=== PATIENT | male | born 1945 | race Caucasian/White ===

== ENCOUNTER 2019-05-15 20:13 | Inpatient (IN) | payer BC ==
[~2019-05-15] VITALS: Ht 170.2 cm; Wt 106.1 kg
[2019-05-15 20:20] VITALS: Ht 170.2 cm; Wt 106.1 kg
--- NOTE | 2019-05-15 20:36 | NUR ---
PT PRESENTS TO ED WITH C/O MIDSTERNAL CHEST PAIN THAT RADIATES TO BOTH ARMS. PT STATES THAT IT STARTED THIS AFTERNOON AND WOKE HIM UP FROM A NAP. PT STATES THAT THE PAIN IS INTERMITTENT AND FEELS DULL. PT HAS PAIN UPON PALPATION OF MIDSTERNUM PT STATES IT IS THE SAME DULL PAIN HE ALREADY FEELS. PT STATES THAT HE HAS ASSOCIATED SOB WITH CHEST PAIN ALONG WITH BACK PAIN HOWEVER HE STATES THAT PAIN IS CHRONIC. PT IS AXO X 4. PT SPEAKING IN CLEAR AND FULL SENTENCES. NAD AT THIS TIME. PT SKIN WNL. PT IS NOT DIAPHORETIC. MD MARIN ALREADY PERFOMED MSE. PT CONNECTED TO FULL CM AND PULSE OX MONITORS. NAD
[2019-05-15 20:42] LABS: BASOPHIL % 0.5 % (0-2); PLATELET COUNT 299 x10^3mcL (130-400); RED CELL DISTRIBUTION WIDTH 13.1 % (11.5-14.5)
[2019-05-15 20:50] LABS: CALCIUM 8.8 mg/dL (8.5-10.1); CARBON DIOXIDE 27.8 mmol/L (21-32); CHLORIDE SERUM 103 mmol/L (98-107); GLUCOSE SERUM 178 mg/dL (74-106); POTASSIUM SERUM 3.8 mmol/L (3.5-5.1); SODIUM SERUM 141 mmol/L (136-145)
[2019-05-15 20:55] LABS: ALBUMIN 4.1 g/dL (3.4-5.0); ALKALINE PHOSPHATASE 98 U/L (46-116); ALT/SGPT 39 U/L (16-63); AST/SGOT 20 U/L (15-37); BILIRUBIN TOTAL 0.42 mg/dL (0.20-1.00)
[2019-05-15 21:02] LABS: TOTAL PROTEIN, SERUM 8.4 g/dL (6.4-8.2)
[2019-05-15] MEDS ORDERED: METOPROLOL SUC100 M2 PO (21:11)
[2019-05-15] MEDS ORDERED: AMLODIPINE BESYL5 M2 PO (21:12)
--- NOTE | 2019-05-15 22:15 | NUR ---
PT IN [facility] IN POSITION OF COMFORT. FAMILY REMAINS AT BEDSIDE. NO DISTRESS. PT REMAINS CONNECTED TO FULL CM.
--- NOTE | 2019-05-15 22:46 | NUR ---
REPORT GIVEN TO LINO MAGALLANES TO ASSUME CARE
[2019-05-15 23:19] VITALS: BP 196/88
--- NOTE | 2019-05-15 23:29 | NUR ---
RECEIVED PT FROM ER, PT ADMIT FOR CHEST PAIN, PT IS A/OX 4, VERBAL RESPONSIVE LUNG SOUND CLEAR BILATERAL, NO COUGH, NO SOB, PT IS ON TELE 12. NSR, DENY ANY CHEST PAIN AT THIS MOMENT, PT STATE HE HAS CHEST PAIN THIS MORNING PAIN WAS COMING AND GO. PRESSURE PAIN. RIGHT ARM NUMBNESS, BOWEL SOUND PRESENT ALL 4 QUADRANTS, NO DISTENTION, NO TENDER. PEDAL PULSE PRESENT BOTH FEET, NO EDEMA, IV AT RIGHT HAND, NO LEAKING, NO INFILTRAITON. ALL ADLS ASSIST, ALL NEED MET, CALL LIGHT IN REACH, WILL CONTINUE TO MONITOR.
--- NOTE | 2019-05-15 23:42 | NUR ---
PATIENT STATES HE FEELS ANXIOUS BUT DENIES CHEST PAIN. HIS BP IS ELEVATED, SEE FLOWCHART. PATIENT GIVEN ATIVAN PO PER EMAR AT THIS TIME.
[2019-05-15 23:57] LABS: CHOLESTEROL/HDL RATIO 4.9
[2019-05-16] VITALS (8 sets, daily range): BP systolic 117–152; BP diastolic 56–82
--- NOTE | 2019-05-16 00:22 | NUR ---
BLOOD PRESSURE REDUCED TO 152/73. PATIENT STILL DENIES CHEST PAIN.
--- NOTE | 2019-05-16 06:33 | NUR ---
NO FURTHER SIGNIFICNAT EVENTS THIS SHIFT. PATIENT IS RESTING IN BED. NO SOB. DENIES CHEST PAIN. IV SALINE LOCKED AND PATENT. CALL LIGHT WITHIN REACH. WILL ENDORSE CARE TO DAYSHIFT NURSE.
--- NOTE | 2019-05-16 09:44 | NUR ---
Recieved report from night nurse at 0730. Patient does not report any chest pain at this time. lung sounds clear to auscultation. Heart rate regular. ECG showing sinus rhythm.
[2019-05-16 11:59] LABS: BASOPHIL % 0.6 % (0-2); PLATELET COUNT 278 x10^3mcL (130-400); RED CELL DISTRIBUTION WIDTH 12.9 % (11.5-14.5)
[2019-05-16 12:14] LABS: CALCIUM 8.2 mg/dL (8.5-10.1); CARBON DIOXIDE 29.3 mmol/L (21-32); CHLORIDE SERUM 102 mmol/L (98-107); GLUCOSE SERUM 192 mg/dL (74-106); POTASSIUM SERUM 3.9 mmol/L (3.5-5.1); SODIUM SERUM 137 mmol/L (136-145)
--- NOTE | 2019-05-16 12:58 | NUR ---
RECEIVED CALL FROM LAB WITH TROPONIN LEVEL OF [phone]. CALL PLACED FOR DR TURNER TO NOTIFY.
--- NOTE | 2019-05-16 14:08 | NUR ---
AT 1305 - RECEIVED CALL FROM DR TOMLINSON. MADE AWARE OF TROPONIN LEVEL. RECEIVED ORDERS: - COMMENCE HEPARIN DRIP. - CARDIOLOGY CONSULT WITH DR SALOMON - ECHCARDIOGRAM AT 1330 - SPOKE WITH PATIENT ABOUT PLANNNED CARE. AT 1345 - ECHOCARDIOGRAM IN PROGRESS. BLOOD HAS BEEN DRAWN FOR PT/PTT. SPOKE WITH PATIENT'S FAMILY, WHO IS AT BEDSIDE. AT 1350 -SEEN BY DR TOMLINSON. SPOKE WITH PATIENT AND FAMILY ABOUT PATIENT HAVING "A HEART ATTACK" AT THIS TIME. PATIENT MAY NEED CARDIAC CATH AND POSSIBLE TRANSFER TO HIGHER LEVEL OF CARE. CARIOLOGIST WILL SEE PATIENT. KEEP O2 SAT ABOVE 92%. USE O2 IF NEEDED. AT 1400 - PATIENT PLACED ON CONTINUOUS O2 SAT. CURRENTLY 96% ON ROOM AIR. MONITOR SHOWING SINUS RHYTHM; RATE 70. NO ECTOPIES. DENIES ANY CHEST PAIN. AWAITING PT/PTT RESULTS FOR HEPARIN INFUSION COMMENCEMENT.
--- NOTE | 2019-05-16 14:44 | NUR ---
ECHOCARDIOGRAM COMPLETED.
--- NOTE | 2019-05-16 15:00 | NUR ---
CALLED TO THE PULMONOLOGY PHYSICIAN AND INFORMED ABOUT TRANSFER PATIENT TO HIGHER LEVEL OF CARE FOR HEART CATH AND TO MAKE ARRANGEMENT.
--- NOTE | 2019-05-16 15:30 | NUR ---
AT 1430 - NITRO PATCH APPLIED TO LEFT CHEST PER EMAR. PT/PTT RESULTS NOW AVAILVE. CALLED PHARMACY. AT 1440 - DR SALOMON AT BEDSIDE. HE SPOKE TO PATIENT AND FAMILY ABOUT PLAN OF TREATMENT INCLUDING CARDIAC CATH AND TRANSFER TO EITHER [facility] OR [facility]. PLAN FOR TRANSFER TOMORROW. AT 1450 - COMMENCED HEPARIN INFUSION AFTER INITAL BOLUS DOSE OF 6400 UNITS HEPARIN. INFUSION COMMENCED AT 1300 UNITS/HR. PTT ORDERED FOR 2100 AT 1455 - NOTED SHORT RUN OF [address] SALOMON AWARE. PT DENIES ANY CHEST PAIN. O2 SAT REMAINS AT 95%. FAMILY AT BEDSIDE.
--- NOTE | 2019-05-16 15:56 | NUR ---
PATIENT SITTING IN CHAIR. APPEARS COMFORTABLE. NO C/O CHEST PAIN. HEPARIN INFUSION REMAINS AT 1300 UNITS/HR. LAB AT BEDSIDE DRAWING NEXT TROPONIN LEVEL.
--- NOTE | 2019-05-16 16:44 | NUR ---
LAST TROPONIN LEVEL 8.549. THIS IS A DOWNWARD TREND. NOT REPORTED - PATIENT IS ALREADY ON HEPARIN INFUSION AND HAS BEEN SEEN BY CYLINDER HANDLER. TREATMENT PLAN IN PROGRESS.
--- NOTE | 2019-05-16 17:00 | NUR ---
[employer] FIELD SUPERVISOR DANK CALLED AND STATED HAVE BED FOR THE PATIENT TO [facility] [email or web address] AND ACCEPTING DOCTOR AND TEL.NO TO GIVE REPORT [phone].
--- NOTE | 2019-05-16 18:21 | NUR ---
PATIENT AWAKE, ALERT AND ORIENTED. MONITOR SHOWING SINUS RHYTHM; RATE 65. NO ECTOPIES NOTED. O2 SAT 96% ON ROOM AIR. DENIES ANY PAIN. HEPARIN INFUSION REMAINS AT 1300 UNITS/HR. EATING A CARDIAC/CCHO DIET. WILL ENDORSE CARE TO NIGHT NURSE.
--- NOTE | 2019-05-16 18:43 | NUR ---
RECEIVED WORD FROM CHARGE NURSE AND NURSING ORTHOPAEDIC SURGEON THAT PATIENT HAS BEEN ACCEPTED IN [facility] WITH DR BOSWELL ACCEPTING PHYSICIAN. CHARGE NURSE CALLING DR SALOMON TO VERIFY IF PATIENT IS TO BE TRANSFERRED TONIGHT OR IN AM.
--- NOTE | 2019-05-16 18:45 | NUR ---
FAMILY AND PATIENT AWARE OF PLAN FOR POSSIBLE TRANSFER TO [facility].
--- NOTE | 2019-05-16 19:00 | NUR ---
CALLED TO COVERING FOR AND MADE AWARE THAT THE PATIENT IS ACCEPTED AT [facility]. HE STATED THAT HE KNEW AND W/ ORDER TO TRANSFER PATIENT AND CONTINUE SAME ORDERS.
--- NOTE | 2019-05-16 19:15 | NUR ---
RECIEVED PATIENT AT START OF SHIFT A/O X4. NO SOB ON RA SATTING 96%. ON TELE 12 NSR 68. PATIENT DENIES CHEST PAIN. IV TO RH ISINFUSING HEPARIN AT 1300 UNITS/HR. NO ERYTHEMA OR INFILTRATION AT IV SITE. CALL LIGHT WITHIN REACH.
--- NOTE | 2019-05-16 19:30 | NUR ---
PATIENT IS TO BE TRANSFERRED TO [facility] FOR HIGHER LEVEL OF CARE. PATIENT IS AGREEABLE WITH TRANSFER. PAPERWORK SIGNED AT THIS TIME. [facility] IS SCHEDULED FOR HEALTH INFORMATION SYSTEMS TECHNICIAN AT 2119. WILL GIVE PATIENT HEPARIN BOLUS BEFORE TRANSFER.
--- NOTE | 2019-05-16 20:12 | NUR ---
REPORT GIVEN TO NURSE LI AT [facility] AT THIS TIME. ALL QUESTIONS AND CONCERNS ADDRESSED.
--- NOTE | 2019-05-16 21:20 | NUR ---
PATIENTS BLOOD SUGAR IS 165. INSULIN HELD TO PREVENT HYPOGLYCEMIA DURING TRANSPORT BECAUSE PATIENT HAS NEVER HAD INSULIN BEFORE.
--- NOTE | 2019-05-16 21:45 | NUR ---
PATIENT GIVEN HEPARIN BOLUS 3,000 UNIT AT THIS TIME, AMS IS ARRIVED TO TANSPORT PATIENT TO [facility]. PATIENT HAS ALL HIS BELONGINGS. DENIES CHEST PAIN. NO SOB ON RA. TELE REMOVED. IV TO RH REMAINS INTACT, SALINE LOCKED AND PATENT.
--- NOTE | 2019-05-16 21:50 | NUR ---
PATIENT LEFT FLOOR WITH AMS AT THIS TIME.
== END 2019-05-16 21:50 | disposition short-term general hospital (02) | DRG 282 ==
LOC: ED 20:13 → EDBEDREQ 22:09 → DU 22:09
PROVIDERS: Emergency Medicine; Internal Medicine Pulmonary Disease; ADMIT Internal Medicine Pulmonary Disease
DX: I21.4 Non-ST elevation (NSTEMI) myocardial infarction (principal); I11.9 Hypertensive heart disease without heart failure; E78.5 Hyperlipidemia, unspecified; G89.29 Other chronic pain; M54.9 Dorsalgia, unspecified
CPT/HCPCS: 82962; 90732; G0378; J1644; Q0092